=== PATIENT | female | born 1960 | race Caucasian/White ===

== ENCOUNTER → 2016-09-05 | Outpatient (CLI) | payer OTHER ==
[~2016-09-05] MED LIST: ASPIRIN LO-DOSE81 MG PO; BRILINTA90 MG PO; COENZYME Q10100 MG PO; LASIX20 MG PO; LIPITOR80 MG PO; LOPRESSOR50 MG PO; MOBIC15 MG PO; NICODERM (HABIT14 MG TRANS; NORVASC10 MG PO; NORVASC5 MG PO; POTASSIUM CHLO10 MEQ PO; TYLENOL325 MG PO; VASOTEC5 MG PO; WELLBUTRIN XL150 M1 PO
[2016-09-05 09:14] LABS: ALBUMIN 3.9 gm/dL (3.5-5.0); ALK PHOS 66 IU/L (33-138); ALT 22 IU/L (12-78); ANION GAP 16.2 (10.0-19.0); AST 11 IU/L (10-40); BLOOD UREA NITROGEN 15 mg/dL (6-24); CALCIUM 8.8 mg/dL (8.5-10.5); CHLORIDE 108 mMol/L (96-110); CO2 23 mMol/L (22-32); CREATININE 0.7 mg/dL (0.5-1.1); ESTIMATED GFR (MDRD EQUATION) > 60; POTASSIUM 4.2 mMol/L (3.7-5.1); SODIUM 143 mMol/L (135-145); TOTAL BILIRUBIN 0.5 mg/dL (0.0-1.5); TOTAL PROTEIN 7.1 g/dL (6.0-8.4)
== END ==
LOC: LNHI 08:55
PROVIDERS: Internal Medicine Interventional Cardiology
DX: I10 Essential (primary) hypertension (principal); I21.4 Non-ST elevation (NSTEMI) myocardial infarction